=== PATIENT | female | born 1980 | race Caucasian/White ===

== ENCOUNTER → 2017-11-24 | Outpatient (REF) | payer BC | LOC: M SFHCLERA 17:00 | DX: R30.0 Dysuria (principal) | CPT/HCPCS: 87186 ==

== ENCOUNTER → 2018-05-01 | Outpatient (REF) | payer BC | LOC: M SFHCLERA 16:20 | PROVIDERS: ATTEND Physician Assistant | DX: R39.15 Urgency of urination (principal) ==

== ENCOUNTER → 2018-11-02 | Outpatient (REF) | payer BC ==
[2018-11-02 14:10] LABS: APPEARANCE, URINE CLEAR (CLEAR); BACTERIA, URINE AUTO NEGATIVE (NEGATIVE); BILIRUBIN, URINE AUTO NEGATIVE (NEGATIVE); BLOOD, URINE BLOOD NEGATIVE (NEGATIVE); COLOR, URINE STRAW (YELLOW); GLUCOSE, URINE (UA) AUTO NEGATIVE (NEGATIVE); KETONE, URINE AUTO NEGATIVE (NEGATIVE); LEUKOCYTE ESTERASE, URINE AUTO NEGATIVE (NEGATIVE); NITRITE, URINE AUTO NEGATIVE (NEGATIVE); PROTEIN, URINE AUTO NEGATIVE (NEGATIVE); RBC, URINE AUTO 0 /HPF (0-3); SPECIFIC GRAVITY URINE AUTO 1.004 (1.002-1.035); SQUAMOUS EPITHELIAL CELL UR AU 0 /HPF (0-6); UROBILINOGEN, URINE AUTO 0.2 mg/dL (0.0-2.0); WBC, URINE AUTO 0 /HPF (0-3)
== END ==
LOC: M SMT 13:33
PROVIDERS: ATTEND Nurse Practitioner Women's Health
DX: Z87.440 Personal history of urinary (tract) infections (principal)

== ENCOUNTER → 2018-11-08 | Outpatient (REF) | payer BC | LOC: M SFHCLERA 20:55 | PROVIDERS: ATTEND Physician Assistant | DX: J02.9 Acute pharyngitis, unspecified (principal) ==

== ENCOUNTER → 2018-11-09 | Outpatient (CLI) | payer BC ==
--- NOTE | 2018-11-09 11:47 | REP ---
Clinical: History of urinary tract infection. Technique: Real time harvey scale and color evaluation using curved array transducer. Findings: The bilateral kidneys are essentially normal in contour, size, echogenicity, and reniform shape without hydronephrosis, nephrolithiasis, or renal mass lesion. No perinephric fluid collection. Mild prominence to the right renal pelvis may be transient or possibly represent subtle extra renal pelvis. The right kidney measures 10.6 x 4.4 x 3.6 cm. Left kidney measures 10.4 x 4.3 x 4.1 cm and includes 1.5 x 1.0 x 0.9 cm cortical cyst. The bladder is normal with bilateral ureteral jets identified. Prevoid bladder measures 10.3 x 9.4 x 7.0 cm (443 ml). Postvoid bladder measures 4.4 x 4.8 x 1.3 cm (18 ml). Postvoid residual equals 4%. Impression: 1. Small left renal cyst. 2. Mild prominence to the right renal pelvis may reflect transient fullness without significant hydronephrosis. 3. Normal bladder. Electronically Signed by Alvin Brock MD 11/09/2018 11:39 A
== END ==
LOC: M RAD 10:32
PROVIDERS: ATTEND Nurse Practitioner Women's Health
DX: Z87.440 Personal history of urinary (tract) infections (principal)

== ENCOUNTER → 2024-09-06 | Outpatient (REF) | payer OTHER | LOC: M LAB REF 12:28 | PROVIDERS: ATTEND Internal Medicine | DX: N76.0 Acute vaginitis (principal) ==

== ENCOUNTER → 2025-03-14 | Outpatient (REF) | payer OTHER ==
[2025-03-14 18:23] LABS: IRON (FE) 97.0 UG/DL (50-170); PERCENT SATURATION 28.1 % (13.2-45.0)
== END ==
LOC: M LAB REF 17:24
PROVIDERS: ATTEND Internal Medicine
DX: D64.9 Anemia, unspecified (principal)

== ENCOUNTER → 2025-03-27 | Outpatient (REF) | payer OTHER | LOC: M PLALAB 13:30 | PROVIDERS: ATTEND Obstetrics & Gynecology | DX: N87.0 Mild cervical dysplasia (principal) ==